=== PATIENT | male | born 1990 | race Two or more races ===

== ENCOUNTER 2020-12-21 06:50 | Emergency (ER) | payer MEDICAID ==
[~2020-12-21] VITALS: Ht 172.7 cm; Wt 81.6 kg
[2020-12-21 06:56] VITALS: BP 144/92
[2020-12-21] MEDS ORDERED: IBUPROFEN 800 MG TAB PO ONE (07:30)
== END 2020-12-21 08:13 | disposition home or self-care (01) ==
LOC: ER 06:50
DX: S63.502A Unspecified sprain of left wrist, initial encounter (principal); M25.531 Pain in right wrist; V29.9XXA Motorcycle rider (driver) (passenger) injured in unspecified traffic accident, initial encounter; Y93.89 Activity, other specified; Y92.89 Other specified places as the place of occurrence of the external cause; Y99.8 Other external cause status
CPT/HCPCS: 73110